=== PATIENT | female | born 1960 | race Caucasian/White ===

== ENCOUNTER 2016-11-28 22:52 | Emergency (ER) | payer MEDICARE, OTHER ==
[~2016-11-28] VITALS: Ht 170.2 cm; Wt 95.0 kg
[~2016-11-28 22:52] MED LIST: ALBU8I INH; APIX5TAB PO; ATOR20TA42 PO; FURO20TA PO; GLIP5 PO; GLUCTAB PO; METO50CR PO; POTA-243 PO; SYMB80AE INH; ULTR50TA PO; VITA400C28 PO; ZOFR4TAB3 SL
[2016-11-28 22:54] VITALS: BP 141/73; PULSE 66; RESP 16; TEMP 98.2; O2SAT 96
[2016-11-28] MEDS ORDERED: VITA100064 PO (23:32)
[2016-11-28] MEDS ORDERED: FURO1TAB62 PO (23:32)
[2016-11-28] MEDS ORDERED: SYMB80AE INH (23:32)
[2016-11-28] MEDS ORDERED: GLIP5TAB8 PO (23:32)
[2016-11-28] MEDS ORDERED: METF500T PO (23:32)
[2016-11-28] MEDS ORDERED: TRAM50TA PO (23:32)
[2016-11-28] MEDS ORDERED: APIX5TAB PO (23:32)
[2016-11-28] MEDS ORDERED: METO50TA11 PO (23:32)
[2016-11-28] MEDS ORDERED: LIPI20TA PO (23:32)
[2016-11-28] MEDS ORDERED: POTA10CA PO (23:32)
[2016-11-28] MEDS ORDERED: SODIUM CHLORIDE 0.9% FLUSH 5 ML FLUSH IVF PRN (23:45)
[2016-11-29 00:11] LABS: AUTOMATED NEUTROPHIL # 2.8 TH/MM3 (1.8-7.7); BASOPHIL % 0.4 % (0.0-2.0); EOSINOPHIL # 0.2 TH/MM3 (0-0.4); EOSINOPHIL % 3.2 % (0.0-4.0); HEMATOCRIT 36.7 % (35.0-46.0); HEMO FLAGS DIFF FINAL; LYMPH % 35.8 % (9.0-44.0); LYMPHOCYTE # 1.9 TH/MM3 (1.0-4.8); MEAN CELL VOLUME 81.3 FL (80.0-100.0); MEAN CORPUSCULAR HEMOGLOBIN 28.1 PG (27.0-34.0); MEAN CORPUSCULAR HGB CONC 34.6 % (32.0-36.0); MONO % 8.3 % (0.0-8.0); NEUT % 52.3 % (16.0-70.0); PLATELET COUNT 215 TH/MM3 (150-450); RED BLOOD COUNT 4.51 MIL/MM3 (4.00-5.30); RED CELL DISTRIBUTION WIDTH 13.6 % (11.6-17.2); WHITE BLOOD COUNT 5.4 TH/MM3 (4.0-11.0)
[2016-11-29 00:20] LABS: APTT (PATIENT) 28.3 SEC (24.3-30.1); INTERNATIONAL NORMALIZED RATIO 0.9 RATIO; PROTHROMBIN TIME - PATIENT 10.4 SEC (9.8-11.6)
[2016-11-29 00:21] LABS: BICARBONATE 28.2 MEQ/L (21.0-32.0); POTASSIUM 3.4 MEQ/L (3.5-5.1)
[2016-11-29 00:30] LABS: BACTERIA, URINE OCC /hpf; BLOOD, URINE MOD (NEG); CALCIUM OXALATE CRYSTALS,URINE FEW /hpf; COMMENT (UR) CULTURE INDICATED; CULTURE IF INDICATED CULTURE INDICATED; GLUCOSE,URINE NEG (NEG); KETONE, URINE NEG (NEG); MUCUS URINE FEW /lpf (OCC); NITRITE,URINE NEG (NEG); PH, URINE 5.5 (5.0-8.5); SQUAMOUS EPITHELIAL CELL URINE 4 /hpf (0-5)
[2016-11-29 00:31] LABS: URINE COLOR LIGHT-RED (YELLW/STRAW)
[2016-11-29] MEDS ORDERED: BACT800T5 PO (00:35)
--- NOTE | 2016-11-29 00:36 | PD ---
HPI Chief Complaint: Complaint Time Seen by Provider: 23:45 Travel History International Travel<30 days: No Contact w/Intl Traveler<30days: No Traveled to known affect area: No History of Present Illness HPI 56-year-old female arrives complaining of hematuria for about 2 days. Yesterday there was trace pink urine and today there was copious hematuria. She denies dysuria. She reports blood in her stool 1. 5 years prior she underwent colonoscopy with polyp evidently noncancerous. She takes Eloquis for atrial fibrillation. She reports a headache for the past couple days typical for her although she did require Excedrin twice and typically a single dose works. No chest pain or shortness of breath. No loss of consciousness. PFSH Past Medical History Hx Anticoagulant Therapy: Yes (ELIQUIS) Asthma: Yes Cardiovascular Problems: Yes (PACEMAKER/DEFIB/[place]) High Cholesterol: Yes Chemotherapy: No Diabetes: Yes (METFORMIN/GLIPIZIDE) Patient Takes Glucophage: Yes Diminished Hearing: No Gastrointestinal Disorders: No Heparin Induced Thrombocytopen: No Hypertension: Yes Implanted Vascular Access Dvce: Yes Respiratory: Yes (ASTHMA) Migraines: Yes Myocardial Infarction: Yes (IN 2007) Seizures: Yes Menopausal: Yes : 3 Para: 3 Tubal Ligation: Yes Past Surgical History AICD: Yes (02/06) Gynecologic Surgery: Yes (ABLATION) Hysterectomy: No Neurologic Surgery: No Other Surgery: Yes Social History Alcohol Use: No Tobacco Use: No Substance Use: No Allergies-Medications (Allergen,Severity, Reaction): Coded Allergies: Penicillin (Verified Allergy, Severe, HIVES, 11/28/16) Reported Meds & Prescriptions Reported Meds & Active Scripts Active Bactrim DS (Sulfamethoxazole-Trimethoprim) 800-160 Mg Tab 1 Tab PO BID 5 Days Reported Tramadol (Tramadol HCl) 50 Mg Tab 50 Mg PO Q8H PRN Potassium Chloride ER (Potassium Chloride) 10 Meq Cap 10 Meq PO BID Metoprolol Succinate ER 24 HR (Metoprolol Succinate) 50 Mg Tab 75 Mg PO DAILY Metformin (Metformin HCl) 500 Mg Tab 500 Mg PO BIDPC With meals Glipizide 5 Mg Tab 5 Mg PO BIDAC Take 30 minutes before a meal Lasix (Furosemide) 20 Mg Tab 20 Mg PO BID Vitamin D (Cholecalciferol) 1,000 Unit Tab 1,000 Units PO DAILY Symbicort Inh (Budesonide/Formoterol Fumarate) 80-4.5 Mcg/Act Aero 2 Puff INH Q12HR Lipitor (Atorvastatin Calcium) 20 Mg Tab 20 Mg PO HS Eliquis (Apixaban) 5 Mg Tab 5 Mg PO BID Review of Systems Except as stated in HPI: all other systems reviewed are Neg Physical Exam Narrative GENERAL: 56-year-old female pleasant well-nourished well-developed SKIN: Warm and dry. HEAD: Atraumatic. Normocephalic. EYES: Pupils equal and round. No scleral icterus. No injection or drainage. ENT: No nasal bleeding or discharge. Mucous membranes pink and moist. NECK: Trachea midline. No JVD. CARDIOVASCULAR: Regular rate and rhythm. No murmur appreciated. RESPIRATORY: No accessory muscle use. Clear to auscultation. Breath sounds equal bilaterally. GASTROINTESTINAL: Abdomen soft, non-tender, nondistended. Hepatic and splenic margins not palpable. MUSCULOSKELETAL: No obvious deformities. No clubbing. No cyanosis. No edema. NEUROLOGICAL: Awake and alert. No obvious cranial nerve deficits. Motor grossly within normal limits. Normal speech. PSYCHIATRIC: Appropriate mood and affect; insight and judgment normal. Data Data Last Documented VS Vital Signs Date Time Temp Pulse Resp B/P Pulse Ox O2 Delivery O2 Flow Rate FiO2 11/28/16 22:54 98.2 66 16 141/73 96 Orders Basic Metabolic Panel (Bmp) (11/28/16 23:45) Complete Blood Count With Diff (11/28/16 23:45) Prothrombin Time / Inr (Pt) (11/28/16 23:45) Act Partial Throm Time (Ptt) (11/28/16 23:45) Urinalysis - C+S If Indicated (11/28/16 23:45) Ecg Monitoring (11/28/16 23:45) Iv Access Insert/Monitor (11/28/16 23:45) Oximetry (11/28/16 23:45) Sodium Chloride 0.9% Flush (Ns Flush) (11/28/16 23:45) Urine Culture (11/28/16 23:30) Sulfamet-Trimeth Ds 800-160 Mg (Bactrim (11/29/16 01:45) Labs Laboratory Tests Test 11/28/16 23:30 White Blood Count 5.4 TH/MM3 Red Blood Count 4.51 MIL/MM3 Hemoglobin 12.7 GM/DL Hematocrit 36.7 % Mean Corpuscular Volume 81.3 FL Mean Corpuscular Hemoglobin 28.1 PG Mean Corpuscular Hemoglobin 34.6 % Concent Red Cell Distribution Width 13.6 % Platelet Count 215 TH/MM3 Mean Platelet Volume 9.1 FL Neutrophils (%) (Auto) 52.3 % Lymphocytes (%) (Auto) 35.8 % Monocytes (%) (Auto) 8.3 % Eosinophils (%) (Auto) 3.2 % Basophils (%) (Auto) 0.4 % Neutrophils # (Auto) 2.8 TH/MM3 Lymphocytes # (Auto) 1.9 TH/MM3 Monocytes # (Auto) 0.4 TH/MM3 Eosinophils # (Auto) 0.2 TH/MM3 Basophils # (Auto) 0.0 TH/MM3 CBC Comment DIFF FINAL Differential Comment Prothrombin Time 10.4 SEC Prothromb Time International 0.9 RATIO Ratio Activated Partial 28.3 SEC Thromboplast Time Urine Color LIGHT-RED Urine Turbidity HAZY Urine pH 5.5 Urine Specific [place] 1.028 Urine Protein 30 mg/dL Urine Glucose (UA) NEG mg/dL Urine Ketones NEG mg/dL Urine Occult Blood MOD Urine Nitrite NEG Urine Bilirubin NEG Urine Urobilinogen LESS THAN 2.0 MG/DL Urine Leukocyte Esterase LARGE Urine RBC /hpf Urine WBC 95 /hpf Urine Squamous Epithelial 4 /hpf Cells Urine Calcium Oxalate Crystals FEW /hpf Urine Bacteria OCC /hpf Urine Mucus FEW /lpf Urine Yeast (Budding) RARE Microscopic Urinalysis Comment CULTURE INDICATED Sodium Level 144 MEQ/L Potassium Level 3.4 MEQ/L Chloride Level 108 MEQ/L Carbon Dioxide Level 28.2 MEQ/L Anion Gap 8 MEQ/L Blood Urea Nitrogen 18 MG/DL Creatinine 0.74 MG/DL Estimat Glomerular Filtration 81 ML/MIN Rate Random Glucose 142 MG/DL Calcium Level 8.6 MG/DL [facility] Medical Decision Making Medical Screen Exam Complete: Yes Emergency Medical Condition: Yes Medical Record Reviewed: Yes Differential Diagnosis Hematuria, anemia, GI bleed Narrative Course CBC & BMP Diagram 11/28/16 23:30 Coags normal Urinalysis UTI present Patient has hemorrhagic cystitis. We will prescribe Bactrim. She has neither tachycardia or anemia. We'll discharge home with Bactrim. Patient agrees to follow-up with her sweatband flanger. Concern for uterine cancer discussed. Patient undergoes routine Pap smears and states she is due for one soon. Necessity of follow-up colonoscopy also discussed and pt verbalizes agreement to follow-up. Diagnosis Primary Impression: Cystitis Additional Impressions: Hematuria Hypokalemia Referrals: Uyen Leonard MD 2 days Primary Care Physician 2 days Additional Instructions: You have a choice when it comes to health care, and we are glad that you chose [email or web address]. Hopefully, we have met your expectations on today's visit. You are welcome to return to [email or web address] at any time, as we are committed to meeting the health care needs of our community. Med/Other Pt SpecificInfo: Prescription(s) given Scripts Sulfamethoxazole-Trimethoprim (Bactrim DS)800-160 Mg Tab1 Tab PO BID 5 Days Ref 0 Prov:Emil Torres MD 11/29/16 Disposition: 01 DISCHARGE HOME Condition: Stable Emil Torres MD Nov 29, 2016 00:36
[2016-11-29 01:45] VITALS: BP 130/76
[2016-11-29] MEDS ORDERED: SULFAMETHOXAZOLE-TRIMETHOPRIM DS 800-160 MG TAB PO ONE (01:45)
== END 2016-11-29 01:45 | disposition home or self-care (01) ==
LOC: NEPC 22:52
DX: N30.91 Cystitis, unspecified with hematuria (principal); B96.4 Proteus (mirabilis) (morganii) as the cause of diseases classified elsewhere; E87.6 Hypokalemia
CPT/HCPCS: 80048; 81001; 85025; 85610; 85730; 87077; 87086; 87186; 99284

== ENCOUNTER 2016-12-07 17:43 | Emergency (ER) | payer OTHER ==
[~2016-12-07] VITALS: Ht 170.2 cm; Wt 95.5 kg
[~2016-12-07 17:43] MED LIST changes: -ALBU8I INH; -ATOR20TA42 PO; +BACT800T5 PO; +FURO1TAB62 PO; -FURO20TA PO; -GLIP5 PO; +GLIP5TAB8 PO; -GLUCTAB PO; +LIPI20TA PO; +METF500T PO; -METO50CR PO; +METO50TA11 PO; -POTA-243 PO; +POTA10CA PO; +TRAM50TA PO; -ULTR50TA PO; +VITA100064 PO; -VITA400C28 PO; -ZOFR4TAB3 SL
[2016-12-07 17:46] VITALS: BP 146/69; PULSE 70; RESP 20; TEMP 98; O2SAT 95
[2016-12-07 20:12] LABS: BACTERIA, URINE FEW /hpf; BLOOD, URINE LARGE (NEG); COMMENT (UR) CULTURE INDICATED; CULTURE IF INDICATED CULTURE INDICATED; GLUCOSE,URINE NEG (NEG); KETONE, URINE NEG (NEG); NITRITE,URINE NEG (NEG); PH, URINE 5.5 (5.0-8.5)
[2016-12-07 20:13] LABS: URINE COLOR BROWN (YELLW/STRAW)
[2016-12-08] MEDS ORDERED: MACR100C2 PO (11:01)
[2016-12-08] MEDS ORDERED: ZOFR4TAB3 SL (11:01)
== END 2016-12-07 23:00 | disposition left against medical advice (07) ==
LOC: NED 17:43
DX: R68.89 Other general symptoms and signs (principal)
CPT/HCPCS: 81001; 87086; 99281

== ENCOUNTER 2016-12-08 08:39 | Emergency (ER) | payer OTHER ==
[~2016-12-08] VITALS: Ht 170.2 cm; Wt 100.0 kg
[2016-12-08 08:41] VITALS: BP 174/75; PULSE 61; RESP 19; TEMP 98; O2SAT 98
--- NOTE | 2016-12-08 09:19 | PD ---
HPI Chief Complaint: Complaint Time Seen by Provider: 09:17 Travel History International Travel<30 days: No Contact w/Intl Traveler<30days: No Traveled to known affect area: No History of Present Illness HPI 56-year-old female came to the emergency room with history of hematuria that started last night. Patient is also getting right flank pain that is radiating down to her right lower quadrant since last night. She has been nauseous and vomited few times she said. No history of fever or chills. Patient was in the emergency room on 28 November with hematuria and she had blood tests done as well as urinalysis and was diagnosed with UTI. She was discharged home on Bactrim for a 5 day course. Patient says that she finished her 5 days and was fine up until last night. She looks in moderate distress. Currently she says her pain is 6 out of 10. The pain comes and goes. Nothing makes the pain better or worse. No history of kidney stones in the past. I reviewed her vital signs and patient is slightly hypertensive. She has history of atrial fibrillation and is on Eliquis. [facility] Past Medical History Narrative Medical List of her past medical history is reviewed from the nursing note. Hx Anticoagulant Therapy: Yes (ELIQUIS) Asthma: Yes Cardiovascular Problems: Yes (PACEMAKER/DEFIB/[place]) High Cholesterol: Yes Chemotherapy: No Diabetes: Yes (METFORMIN/GLIPIZIDE) Diminished Hearing: No Gastrointestinal Disorders: No Heparin Induced Thrombocytopen: No Hypertension: Yes Implanted Vascular Access Dvce: Yes Respiratory: Yes (ASTHMA) Immunizations Current: Yes Migraines: Yes Myocardial Infarction: Yes (IN 2007) Seizures: Yes Menopausal: Yes : 3 Para: 3 Tubal Ligation: Yes Past Surgical History AICD: Yes (02/06) Cardiac Surgery: Yes (PACEMAKER/AICD) Gynecologic Surgery: Yes (ABLATION) Hysterectomy: No Neurologic Surgery: No Pacemaker: Yes Other Surgery: Yes Social History Alcohol Use: No Tobacco Use: No Substance Use: No Allergies-Medications (Allergen,Severity, Reaction): Coded Allergies: Penicillin (Verified Allergy, Severe, HIVES, 12/08/16) Comments List of her allergies reviewed from the nursing note. Reported Meds & Prescriptions Reported Meds & Active Scripts Active Zofran Odt (Ondansetron Odt) 4 Mg Tab 4 Mg SL Q6HR PRN Macrobid (Nitrofurantoin Monoh/Nitrofur Macro) 100 Mg Cap 100 Mg PO BID 10 Days Reported Tramadol (Tramadol HCl) 50 Mg Tab 50 Mg PO Q8H PRN Potassium Chloride ER (Potassium Chloride) 10 Meq Cap 10 Meq PO BID Metoprolol Succinate ER 24 HR (Metoprolol Succinate) 50 Mg Tab 75 Mg PO DAILY Metformin (Metformin HCl) 500 Mg Tab 500 Mg PO BIDPC With meals Glipizide 5 Mg Tab 5 Mg PO BIDAC Take 30 minutes before a meal Lasix (Furosemide) 20 Mg Tab 20 Mg PO DAILY Vitamin D (Cholecalciferol) 1,000 Unit Tab 1,000 Units PO DAILY Symbicort Inh (Budesonide/Formoterol Fumarate) 80-4.5 Mcg/Act Aero 2 Puff INH Q12HR Lipitor (Atorvastatin Calcium) 20 Mg Tab 20 Mg PO HS Eliquis (Apixaban) 5 Mg Tab 5 Mg PO BID Narrative Medication List of her home medications reviewed from the nursing note. Review of Systems Except as stated in HPI: all other systems reviewed are Neg Physical Exam Narrative GENERAL: Awake, alert, obese, moderate distress SKIN: Warm and dry. HEAD: Atraumatic. Normocephalic. EYES: Pupils equal and round. No scleral icterus. No injection or drainage. ENT: No nasal bleeding or discharge. Dry mucous membrane. NECK: Trachea midline. No JVD. CARDIOVASCULAR: Regular rate and rhythm. No murmur appreciated. RESPIRATORY: No accessory muscle use. Clear to auscultation. Breath sounds equal bilaterally. GASTROINTESTINAL: Abdomen soft, non-tender, nondistended. Hepatic and splenic margins not palpable. No CVA tenderness. MUSCULOSKELETAL: No obvious deformities. No clubbing. No cyanosis. No edema. NEUROLOGICAL: Awake and alert. No obvious cranial nerve deficits. Motor grossly within normal limits. Normal speech. PSYCHIATRIC: Appropriate mood and affect; insight and judgment normal. Data Data Last Documented VS Vital Signs Date Time Temp Pulse Resp B/P Pulse Ox O2 Delivery O2 Flow Rate FiO2 12/08/16 11:22 17 12/08/16 10:55 61 146/67 98 Room Air 12/08/16 08:41 98.0 Orders Basic Metabolic Panel (Bmp) (12/08/16 09:23) Complete Blood Count With Diff (12/08/16 09:23) Urinalysis - C+S If Indicated (12/08/16 09:23) Ct Abd/Pel W/O Iv Contrast (12/08/16 09:23) Iv Access Insert/Monitor (12/08/16 09:23) Ecg Monitoring (12/08/16 09:23) Oximetry (12/08/16 09:23) Ondansetron Inj (Zofran Inj) (12/08/16 09:30) Sodium Chlor 0.9% 1000 Ml Inj (Ns 1000 M (12/08/16 09:23) Sodium Chloride 0.9% Flush (Ns Flush) (12/08/16 09:30) Ketorolac Inj (Toradol Inj) (12/08/16 09:30) Urine Culture (12/08/16 09:48) Nitrofurantoin Monohyd Macrocr (Macrobid (12/08/16 11:00) Labs Laboratory Tests Test 12/08/16 12/08/16 09:48 10:02 Urine Color YELLOW Urine Turbidity CLEAR Urine pH 5.5 Urine Specific [place] 1.021 Urine Protein 100 mg/dL Urine Glucose (UA) NEG mg/dL Urine Ketones NEG mg/dL Urine Occult Blood LARGE Urine Nitrite NEG Urine Bilirubin NEG Urine Urobilinogen LESS THAN 2.0 MG/DL Urine Leukocyte Esterase NEG Urine RBC /hpf Urine WBC 44 /hpf Urine Bacteria OCC /hpf Urine Mucus FEW /lpf Microscopic Urinalysis Comment CULTURE INDICATED Sodium Level 137 MEQ/L Potassium Level 3.8 MEQ/L Chloride Level 103 MEQ/L Carbon Dioxide Level 25.6 MEQ/L Anion Gap 8 MEQ/L Blood Urea Nitrogen 13 MG/DL Creatinine 0.71 MG/DL Estimat Glomerular Filtration 85 ML/MIN Rate Random Glucose 157 MG/DL Calcium Level 8.9 MG/DL White Blood Count 10.1 TH/MM3 Red Blood Count 4.79 MIL/MM3 Hemoglobin 13.7 GM/DL Hematocrit 38.5 % Mean Corpuscular Volume 80.4 FL Mean Corpuscular Hemoglobin 28.5 PG Mean Corpuscular Hemoglobin 35.4 % Concent Red Cell Distribution Width 13.4 % Platelet Count 231 TH/MM3 Mean Platelet Volume 9.3 FL Neutrophils (%) (Auto) 79.0 % Lymphocytes (%) (Auto) 14.5 % Monocytes (%) (Auto) 5.0 % Eosinophils (%) (Auto) 1.0 % Basophils (%) (Auto) 0.5 % Neutrophils # (Auto) 8.0 TH/MM3 Lymphocytes # (Auto) 1.5 TH/MM3 Monocytes # (Auto) 0.5 TH/MM3 Eosinophils # (Auto) 0.1 TH/MM3 Basophils # (Auto) 0.0 TH/MM3 CBC Comment AUTO DIFF Differential Comment AUTO DIFF CONFIRMED Platelet Estimate NORMAL Platelet Morphology Comment NORMAL Red Cell Morphology Comment NORMAL MDM Medical Decision Making Medical Screen Exam Complete: Yes Emergency Medical Condition: Yes Medical Record Reviewed: Yes Differential Diagnosis Ureteral colic, UTI, pyelonephritis Narrative Course 9:47 AM I reviewed her chart from her previous visit. I reviewed her lab reports. Patient was positive for UTI and the urine culture grew Proteus mirabilis that was sensitive to Bactrim. It is possible that the course of the antibiotic she was given might have been too short to treat the infection. This could be a recurrence of the same infection. Given the fact that she is on anticoagulant could be giving her the gross hematuria. However I have ordered a CAT scan in order to rule out renal calculi. Patient does have the flank pain along with hematuria which would support that diagnosis. Awaiting for the blood test result and the CAT scan to be done and resulted. Patient is being medicated for pain. She looks dehydrated and I have ordered IV fluid. 10:58 AM blood test results are back and grossly within normal limit. Her UA was grossly positive for UTI. Based on the previous culture and sensitivity I have given her Macrobid this time and she should go home on a 10 day course. CAT scan does not show pyelonephritis or ureteral calculus. Incidentally she does have a renal calculi. I discussed with her all the test results and told her that I will discharge her home once she is finished receiving the IV fluid. Patient did not have any more vomiting episode in the ER. I will give her prescription for Zofran as well. She was comfortable with that plan. Procedures Procedure Narrative Emergency department US guided peripheral IV was performed with patient consent. Linear probe was used in the transverse views of the peripheral vein to assist with vascular access. EKG Prior to Arrival: No Diagnosis Primary Impression: UTI (urinary tract infection) Qualified Code: N39.0 - Urinary tract infection with hematuria, site unspecified Additional Impressions: Vomiting Qualified Code: R11.2 - Non-intractable vomiting with nausea, unspecified vomiting type Dehydration Referrals: Primary Care Physician 2 days Departure Forms: Tests/Procedures, Work Release Enter return to work date: Dec 09, 2016 Additional Instructions: Please return to the ER if the condition worsens or any other new concerns like vomiting and unable to hold the antibiotic down. The antibiotic and medication as per the prescription direction. Follow-up with your primary care in couple days. Hold L liquids for the next 2 days until the blood in your urine results. Med/Other Pt SpecificInfo: Prescription(s) given Scripts Ondansetron Odt (Zofran Odt)4 Mg Tab4 Mg SL Q6HR PRN (Nausea/Vomiting) #30 TAB Ref 0 Prov:Jeniffer Loco MD 12/08/16 Nitrofurantoin Monohydrate Macrocrystals (Macrobid)100 Mg [id number] Mg PO BID 10 Days Ref 0 Prov:Jeniffer Loco MD 12/08/16 Disposition: 01 DISCHARGE HOME Condition: Stable Jeniffer Loco MD Dec 08, 2016 09:19
[2016-12-08] MEDS ORDERED: SODIUM CHLOR 0.9% 1000 ML INJ 1,000 ML IV SCH (09:23)
[2016-12-08] MEDS ORDERED: ONDANSETRON HCL 4 MG/2 ML VIAL IVP ONE (09:30)
[2016-12-08] MEDS ORDERED: SODIUM CHLORIDE 0.9% FLUSH 5 ML FLUSH IVF PRN (09:30)
[2016-12-08] MEDS ORDERED: KETOROLAC TROMETHAMINE 30 MG/ML (IVP) VIAL IVP ONE (09:30)
[2016-12-08 10:19] LABS: BASOPHIL % 0.5 % (0.0-2.0); EOSINOPHIL # 0.1 TH/MM3 (0-0.4); HEMATOCRIT 38.5 % (35.0-46.0); LYMPH % 14.5 % (9.0-44.0); LYMPHOCYTE # 1.5 TH/MM3 (1.0-4.8); MEAN CELL VOLUME 80.4 FL (80.0-100.0); MEAN CORPUSCULAR HEMOGLOBIN 28.5 PG (27.0-34.0); MEAN CORPUSCULAR HGB CONC 35.4 % (32.0-36.0); PLATELET COUNT 231 TH/MM3 (150-450); RED BLOOD COUNT 4.79 MIL/MM3 (4.00-5.30); RED CELL DISTRIBUTION WIDTH 13.4 % (11.6-17.2); WHITE BLOOD COUNT 10.1 TH/MM3 (4.0-11.0)
[2016-12-08 10:24] LABS: HEMO FLAGS AUTO DIFF
[2016-12-08 10:25] VITALS: O2SAT 97
[2016-12-08 10:31] LABS: BICARBONATE 25.6 MEQ/L (21.0-32.0); POTASSIUM 3.8 MEQ/L (3.5-5.1)
--- NOTE | 2016-12-08 10:31 | RADRPT ---
EXAM DATE/TIME: 12/08/2016 10:09 [place] COMPARISON: No previous studies available for comparison. INDICATIONS : Right lower quadrant pain, hematuria ORAL CONTRAST: No oral contrast ingested. RADIATION DOSE: 8.55 CTDIvol (mGy) MEDICAL HISTORY : Cardiovascular disease. Hypertension. SURGICAL HISTORY : Tubal ligation. ENCOUNTER: Initial ACUITY: 2 weeks PAIN SCALE: 6/10 LOCATION: Right lower quadrant TECHNIQUE: Volumetric scanning of the abdomen and pelvis was performed. Using automated exposure control and ad justment of the mA and/or kV according to patient size, radiation dose was kept as low as reasonably achievable to obtain optimal diagnostic quality images. FINDINGS: LOWER LUNGS: The visualized lower lungs are clear. LIVER: Homogeneous density without lesion. There is no dilation of the biliary tree. No calcified gallston es. SPLEEN: Normal size without lesion. PANCREAS: Within normal limits. KIDNEYS: Normal in size and shape. There is no hydronephrosis. There is an apparent parapelvic cyst in the up per pole the right kidney. There is a 1.2 x 0.9 x 1.1 cm calculus in the lower pole the left kidney. The ureters are unremarkable. ADRENAL GLANDS: Within normal limits. VASCULAR: There is no aortic aneurysm. BOWEL/MESENTERY: The stomach, small bowel, and colon demonstrate no acute abnormality. There is no free intraperitone al air or fluid. ABDOMINAL WALL: Within normal limits. RETROPERITONEUM: There is no lymphadenopathy. BLADDER: No wall thickening or mass. REPRODUCTIVE: Within normal limits. INGUINAL: There is no lymphadenopathy or hernia. MUSCULOSKELETAL: Within normal limits for patient age. CONCLUSION: 1. Left renal calculus. 2. Apparent right parapelvic cysts. 3. Unremarkable ureters with no evidence of hydronephrosis. Sean Yadav MD on December 08, 2016 at 10:26 Board Certified Radiologist. This report was verified electronically.
[2016-12-08 10:47] LABS: BACTERIA, URINE OCC /hpf; BLOOD, URINE LARGE (NEG); COMMENT (UR) CULTURE INDICATED; CULTURE IF INDICATED CULTURE INDICATED; GLUCOSE,URINE NEG (NEG); KETONE, URINE NEG (NEG); MUCUS URINE FEW /lpf (OCC); NITRITE,URINE NEG (NEG); PH, URINE 5.5 (5.0-8.5); URINE COLOR YELLOW (YELLW/STRAW)
[2016-12-08 10:55] VITALS: BP 146/67; PULSE 61; RESP 17; O2SAT 98
[2016-12-08 10:56] LABS: PLATELET ESTIMATE SMEAR NORMAL (NORMAL); PLATELET MORPHOLOGY NORMAL (NORMAL); SCAN/DIFF AUTO DIFF CONFIRMED
[2016-12-08] MEDS ORDERED: NITROFURANTOIN MONOHYD MACROCR 100 MG CAP PO ONE (11:00)
[2016-12-08] MEDS ORDERED: ZOFR4TAB3 SL (11:01)
[2016-12-08] MEDS ORDERED: MACR100C2 PO (11:01)
[2016-12-08 11:22] VITALS: RESP 17
== END 2016-12-08 12:03 | disposition home or self-care (01) ==
LOC: NEPD 08:39
DX: N39.0 Urinary tract infection, site not specified (principal); R11.2 Nausea with vomiting, unspecified; E86.0 Dehydration; I48.91 Unspecified atrial fibrillation; J45.909 Unspecified asthma, uncomplicated; E11.9 Type 2 diabetes mellitus without complications; I10 Essential (primary) hypertension; E78.00 Pure hypercholesterolemia, unspecified; I25.2 Old myocardial infarction; B96.4 Proteus (mirabilis) (morganii) as the cause of diseases classified elsewhere; Z95.0 Presence of cardiac pacemaker; Z79.01 Long term (current) use of anticoagulants
CPT/HCPCS: 74176; 80048; 81001; 85025; 87077; 87086; 87186; 96361; 96374; 96375; 99284; J1885; J2405; J7030

== ENCOUNTER 2016-12-27 23:24 | Emergency (ER) | payer OTHER ==
[~2016-12-27] VITALS: Ht 170.2 cm; Wt 100.0 kg
[~2016-12-27 23:24] MED LIST changes: -BACT800T5 PO; +MACR100C2 PO; +ZOFR4TAB3 SL
[2016-12-27 23:26] VITALS: BP 160/78; PULSE 87; RESP 20; TEMP 98.4; O2SAT 96
[2016-12-28 00:08] LABS: AUTOMATED NEUTROPHIL # 5.4 TH/MM3 (1.8-7.7); BASOPHIL % 0.4 % (0.0-2.0); EOSINOPHIL # 0.1 TH/MM3 (0-0.4); EOSINOPHIL % 1.6 % (0.0-4.0); HEMATOCRIT 39.4 % (35.0-46.0); HEMO FLAGS DIFF FINAL; LYMPH % 19.5 % (9.0-44.0); LYMPHOCYTE # 1.5 TH/MM3 (1.0-4.8); MEAN CELL VOLUME 80.6 FL (80.0-100.0); MEAN CORPUSCULAR HEMOGLOBIN 27.7 PG (27.0-34.0); MEAN CORPUSCULAR HGB CONC 34.4 % (32.0-36.0); MONO % 7.1 % (0.0-8.0); NEUT % 71.4 % (16.0-70.0); PLATELET COUNT 237 TH/MM3 (150-450); RED BLOOD COUNT 4.88 MIL/MM3 (4.00-5.30); RED CELL DISTRIBUTION WIDTH 13.6 % (11.6-17.2); WHITE BLOOD COUNT 7.6 TH/MM3 (4.0-11.0)
[2016-12-28 00:17] LABS: BLOOD, URINE LARGE (NEG); GLUCOSE,URINE TRACE mg/dL (NEG); KETONE, URINE NEG (NEG); NITRITE,URINE NEG (NEG)
[2016-12-28 00:20] LABS: BICARBONATE 28.1 MEQ/L (21.0-32.0); POTASSIUM 3.7 MEQ/L (3.5-5.1)
[2016-12-28 00:23] LABS: URINE COLOR RED (YELLW/STRAW)
[2016-12-28 00:25] LABS: COMMENT (UR) CULTURE INDICATED; CULTURE IF INDICATED CULTURE INDICATED
[2016-12-28 00:27] LABS: APTT (PATIENT) 26.1 SEC (24.3-30.1); INTERNATIONAL NORMALIZED RATIO 0.9 RATIO; PROTHROMBIN TIME - PATIENT 9.5 SEC (9.8-11.6)
[2016-12-28] MEDS ORDERED: SODIUM CHLOR 0.9% 1000 ML INJ 1,000 ML IV ONE (00:30)
[2016-12-28] MEDS ORDERED: MORPHINE SULFATE 4 MG/ML INJ IV PUSH ONE ×2 (00:30→02:15)
[2016-12-28] MEDS ORDERED: ONDANSETRON HCL 4 MG/2 ML VIAL IV ONE (00:30)
--- NOTE | 2016-12-28 01:05 | PD ---
HPI Chief Complaint: Flank/Kidney Pain Time Seen by Provider: 23:35 Travel History International Travel<30 days: No Contact w/Intl Traveler<30days: No Traveled to known affect area: No History of Present Illness HPI The patient is a 56 year old female who presents to the [facility] emergency department with a history of right-sided flank pain that she reports is intermittently been present throughout the day today and became much worse that he p.m. The patient reports that she's had problems with back pain and hematuria over the last month. The patient reports that she went to the emergency department related to the hematuria was diagnosed with urinary tract infection and treated with antibiotic. The patient continued to have pain and hematuria week later was again seen in the emergency department on December 08. The patient reports that at that time a CT scan of the abdomen and pelvis was done which showed a renal calculi, no hydronephrosis or ureterolithiasis. The patient was again diagnosed with a urinary tract infection and treated with a ten-day course of Macrobid and Zofran for nausea. She reports that she followed up with her primary care physician this past . The patient reports that she was given a shot of pain medication and Naprosyn, however the Naprosyn has not been helping at all. The patient's medical history is, located by having atrial fibrillation, cardiac arrhythmias with pacemaker/AICD placement and is on Eliquis for anticoagulation. The patient reports that she has been on tramadol for years for pain, however she ran out of this . She reports that the physician that she followed up with on is a new primary care physician and they did not write a new RX for her pain medicine. She reports that she is chronically on tramadol related to back and leg pain. The patient reports that she has flank pain on the right side that radiates into the right lower quadrant of the abdomen. She reports that she's had nausea and vomiting 3 today. The patient denies The patient denies any history of fevers, cough, congestion, neck pain, chest pain, shortness of breath ,diarrhea, or neurologic symptoms. FORMERLY [facility], [facility]–1983 Past Medical History Narrative Medical The patient's past medical history is significant for atrial fibrillation, anticoagulated on Eliquis, asthma, hyperlipidemia, diabetes mellitus, , hypertension, history of migraine headaches, seizure disorder, history of myocardial infarction in 2007. Hx Anticoagulant Therapy: Yes (ELIQUIS) Asthma: Yes Cardiovascular Problems: Yes (PACEMAKER/DEFIB/AK) High Cholesterol: Yes Chemotherapy: No Diabetes: Yes (METFORMIN/GLIPIZIDE) Patient Takes Glucophage: Yes Diminished Hearing: No Gastrointestinal Disorders: No Heparin Induced Thrombocytopen: No Hypertension: Yes Implanted Vascular Access Dvce: Yes Respiratory: Yes (ASTHMA) Immunizations Current: Yes Migraines: Yes Myocardial Infarction: Yes (IN 2007) Seizures: Yes Menopausal: Yes : 3 Para: 3 Tubal Ligation: Yes Past Surgical History Narrative Surgical The patient's past surgical history is significant for pacemaker/AICD placement , history of cardiac ablation, history of bilateral tubal ligation, history of a urethral dilatation at 11 years of age AICD: Yes (02/06) Cardiac Surgery: Yes (PACEMAKER/AICD) Gynecologic Surgery: Yes (ABLATION) Hysterectomy: No Neurologic Surgery: No Pacemaker: Yes (DUAL CHAMBER) Other Surgery: Yes Social History Alcohol Use: No Tobacco Use: No Substance Use: No Allergies-Medications (Allergen,Severity, Reaction): Coded Allergies: Penicillin (Verified Allergy, Severe, HIVES, 12/27/16) Reported Meds & Prescriptions Reported Meds & Active Scripts Active Zofran Odt (Ondansetron Odt) 4 Mg Tab 4 Mg SL Q6HR PRN Lortab (Hydrocodone-Acetaminophen) 7.5-325 Mg Tab 1 Tab PO Q6H PRN Ceftin (Cefuroxime Axetil) 500 Mg Tab 500 Mg PO BID 10 Days Zofran Odt (Ondansetron Odt) 4 Mg Tab 4 Mg SL Q6HR PRN Macrobid (Nitrofurantoin Monoh/Nitrofur Macro) 100 Mg Cap 100 Mg PO BID 10 Days Reported Tramadol (Tramadol HCl) 50 Mg Tab 50 Mg PO Q8H PRN Potassium Chloride ER (Potassium Chloride) 10 Meq Cap 10 Meq PO BID Metoprolol Succinate ER 24 HR (Metoprolol Succinate) 50 Mg Tab 75 Mg PO DAILY Metformin (Metformin HCl) 500 Mg Tab 500 Mg PO BIDPC With meals Glipizide 5 Mg Tab 5 Mg PO BIDAC Take 30 minutes before a meal Lasix (Furosemide) 20 Mg Tab 20 Mg PO DAILY Vitamin D (Cholecalciferol) 1,000 Unit Tab 1,000 Units PO DAILY Symbicort Inh (Budesonide/Formoterol Fumarate) 80-4.5 Mcg/Act Aero 2 Puff INH Q12HR Lipitor (Atorvastatin Calcium) 20 Mg Tab 20 Mg PO HS Eliquis (Apixaban) 5 Mg Tab 5 Mg PO BID Review of Systems Except as stated in HPI: all other systems reviewed are Neg General / Constitutional: No: Fever Eyes: No: Visual changes HENT: No: Headaches Cardiovascular: No: Chest Pain or Discomfort Respiratory: No: Shortness of Breath Gastrointestinal: Positive: Nausea, Vomiting, Abdominal Pain Genitourinary: Positive: Dysuria, Hematuria, Flank Pain Musculoskeletal: No: Pain Skin: No Rash Neurologic: No: Weakness Psychiatric: No: Depression Endocrine: No: Polydipsia Hematologic/Lymphatic: No: Easy Bruising Physical Exam Narrative General: The patient is a well-developed well-nourished female in no acute distress. Head and Neck exam: Head is normocephalic atraumatic. Eyes: EOMI, pupils are equal round and reactive to light. Nose: Midline septum with pink mucous membranes Mouth: Dentition unremarkable. Moist mucus membranes. Posterior oropharynx is not erythematous. No tonsillar hypertrophy. Uvula midline. Airway patent. Neck: No palpable lymphadenopathy. No nuchal rigidity. No thyromegaly. Cardiovascular: Regular rate and rhythm without murmurs, gallops, or rubs. Lungs: Clear to auscultation bilaterally. No wheezes, rhonchi, or rales. Abdomen: Soft, without tenderness to palpation in all 4 quadrants of the abdomen. No guarding, rebound, or rigidity. Normal bowel sounds are audible. No tenderness on palpation of McBurney's point. Negative Hannon's sign. Extremities: No clubbing, cyanosis, or edema. 2+ pulses in all 4 extremities. No calf tenderness on palpation. Back: No spinous process tenderness to palpation. Right-sided CVA tenderness on palpation. Neurologic Exam: Grossly nonfocal. Skin Exam: No rash noted. Intact skin that is warm and dry. Data Data Last Documented VS Vital Signs Date Time Temp Pulse Resp B/P Pulse Ox O2 Delivery O2 Flow Rate FiO2 12/28/16 03:30 80 16 128/67 100 12/27/16 23:26 98.4 Room Air Orders Complete Blood Count With Diff (12/27/16 23:48) Basic Metabolic Panel (Bmp) (12/27/16 23:48) Prothrombin Time / Inr (Pt) (12/27/16 23:48) Act Partial Throm Time (Ptt) (12/27/16 23:48) Urinalysis - C+S If Indicated (12/27/16 23:48) Iv Access Insert/Monitor (12/27/16 23:48) Ecg Monitoring (12/27/16 23:48) Oximetry (12/27/16 23:48) Urine Culture (12/27/16 23:45) Urinary Catheter Insert/Apply (12/28/16 00:28) Sodium Chlor 0.9% 1000 Ml Inj (Ns 1000 M (12/28/16 00:30) Ondansetron Inj (Zofran Inj) (12/28/16 00:30) Morphine Inj (Morphine Inj) (12/28/16 00:30) Ct Abd/Pel W/O Iv Contrast (12/28/16 00:30) Sodium Chlorid 0.9% 500 Ml Inj (Ns 500 M (12/28/16 02:15) Morphine Inj (Morphine Inj) (12/28/16 02:15) Ceftriaxone Inj (Rocephin Inj) (12/28/16 02:15) Labs Laboratory Tests Test 12/27/16 23:45 Prothrombin Time 9.5 SEC Prothromb Time International 0.9 RATIO Ratio Activated Partial 26.1 SEC Thromboplast Time Sodium Level 143 MEQ/L Potassium Level 3.7 MEQ/L Chloride Level 107 MEQ/L Carbon Dioxide Level 28.1 MEQ/L Anion Gap 8 MEQ/L Blood Urea Nitrogen 22 MG/DL Creatinine 0.80 MG/DL Estimat Glomerular Filtration 74 ML/MIN Rate Random Glucose 154 MG/DL Calcium Level 9.1 MG/DL White Blood Count 7.6 TH/MM3 Red Blood Count 4.88 MIL/MM3 Hemoglobin 13.5 GM/DL Hematocrit 39.4 % Mean Corpuscular Volume 80.6 FL Mean Corpuscular Hemoglobin 27.7 PG Mean Corpuscular Hemoglobin 34.4 % Concent Red Cell Distribution Width 13.6 % Platelet Count 237 TH/MM3 Mean Platelet Volume 9.2 FL Neutrophils (%) (Auto) 71.4 % Lymphocytes (%) (Auto) 19.5 % Monocytes (%) (Auto) 7.1 % Eosinophils (%) (Auto) 1.6 % Basophils (%) (Auto) 0.4 % Neutrophils # (Auto) 5.4 TH/MM3 Lymphocytes # (Auto) 1.5 TH/MM3 Monocytes # (Auto) 0.5 TH/MM3 Eosinophils # (Auto) 0.1 TH/MM3 Basophils # (Auto) 0.0 TH/MM3 CBC Comment DIFF FINAL Differential Comment Urine Color RED Urine Turbidity HAZY Urine pH 6.0 Urine Specific Spur 1.020 Urine Protein 100 mg/dL Urine Glucose (UA) TRACE mg/dL Urine Ketones NEG mg/dL Urine Occult Blood LARGE Urine Nitrite NEG Urine Bilirubin NEG Urine Urobilinogen LESS THAN 2.0 MG/DL Urine Leukocyte Esterase LARGE Urine RBC /hpf Urine WBC 679 /hpf Urine WBC Clumps RARE Microscopic Urinalysis Comment CULTURE INDICATED MDM Medical Decision Making Medical Screen Exam Complete: Yes Emergency Medical Condition: Yes Medical Record Reviewed: Yes Interpretation(s) Laboratory Tests Test 12/27/16 23:45 Prothrombin Time 9.5 SEC Prothromb Time International 0.9 RATIO Ratio Activated Partial 26.1 SEC Thromboplast Time Sodium Level 143 MEQ/L Potassium Level 3.7 MEQ/L Chloride Level 107 MEQ/L Carbon Dioxide Level 28.1 MEQ/L Anion Gap 8 MEQ/L Blood Urea Nitrogen 22 MG/DL Creatinine 0.80 MG/DL Estimat Glomerular Filtration 74 ML/MIN Rate Random Glucose 154 MG/DL Calcium Level 9.1 MG/DL White Blood Count 7.6 TH/MM3 Red Blood Count 4.88 MIL/MM3 Hemoglobin 13.5 GM/DL Hematocrit 39.4 % Mean Corpuscular Volume 80.6 FL Mean Corpuscular Hemoglobin 27.7 PG Mean Corpuscular Hemoglobin 34.4 % Concent Red Cell Distribution Width 13.6 % Platelet Count 237 TH/MM3 Mean Platelet Volume 9.2 FL Neutrophils (%) (Auto) 71.4 % Lymphocytes (%) (Auto) 19.5 % Monocytes (%) (Auto) 7.1 % Eosinophils (%) (Auto) 1.6 % Basophils (%) (Auto) 0.4 % Neutrophils # (Auto) 5.4 TH/MM3 Lymphocytes # (Auto) 1.5 TH/MM3 Monocytes # (Auto) 0.5 TH/MM3 Eosinophils # (Auto) 0.1 TH/MM3 Basophils # (Auto) 0.0 TH/MM3 CBC Comment DIFF FINAL Differential Comment Urine Color RED Urine Turbidity HAZY Urine pH 6.0 Urine Specific Spur 1.020 Urine Protein 100 mg/dL Urine Glucose (UA) TRACE mg/dL Urine Ketones NEG mg/dL Urine Occult Blood LARGE Urine Nitrite NEG Urine Bilirubin NEG Urine Urobilinogen LESS THAN 2.0 MG/DL Urine Leukocyte Esterase LARGE Urine RBC /hpf Urine WBC 679 /hpf Urine WBC Clumps RARE Microscopic Urinalysis Comment CULTURE INDICATED Last Impressions Abdomen/Pelvis CT 12/28/16 0030 Signed Impressions: Service Date/Time: Wednesday, December 28, 2016 01:22 - CONCLUSION: 1. Right-sided mild hydronephrosis and obstructive uropathy secondary to a presumed faintly calcified 3 mm calculus near the right UVJ with additional 3 mm calculus dependently within the bladder. Bladder decompressed by Jane. 2. Nonobstructing calculus lower pole left kidney. Tigre Rios MD Differential Diagnosis Ureteral lithiasis, versus pyelonephritis, versus exacerbation of chronic pain Narrative Course During the course of the patients emergency department visit, the patients history, examination, and differential diagnosis were reviewed with the patient. The patient had IV access obtained and blood work sent for analysis. The patient was placed on a corporate trust officer with oximetry and blood pressure monitoring. The patient's electronic medical record was reviewed. The patient' s last CT scan was done December 08. Will be repeated at this time due to the pain being much worse than previously. The patient was provided normal saline 1 L IV fluid bolus. The patient was given morphine 4 mg IV for pain, Zofran 4 mg IV for nausea. The patient reports having urinary frequency and urgency with minimal urine output. The patient has a history of urinary retention and ureteral stricture and childhood , therefore a Jane catheter will be placed to assess for urinary retention. No urinary retention was noted. The patient was given an additional normal saline 500 mL bolus. Urinalysis showed evidence of hematuria and pyuria the patient was given Rocephin 1 g IV. The patient's urine culture that was done previously grew out Proteus which was pansensitive. The patient will be discharged home with a prescription for Ceftin. The patients laboratory studies were reviewed and remarkable for a CBC that is unremarkable, BNP is remarkable for BUN of 22, glucose 154, PT 9.5, INR 0.9, PTT 26.1, urinalysis shows red urine, 100 protein, large occult blood, large leukocyte esterase, innumerable rbc's, 679 wbc's, rare clumps, culture indicated. Radiology studies were reviewed and remarkable for a CT scan of the abdomen and pelvis shows a right sided mild hydronephrosis and obstructive uropathy secondary to a presumed faintly calcified 3 mm calculus near the right UVJ and an additional 3 mm calculus dependent within the bladder. The bladder is decompressed by a Jane, nonobstructing calculus lower pole left kidney. The Jane catheter was removed, as the patient's symptoms of urgency appeared to be related to her bladder stone and ureteral calculi. The patient had no evidence of urinary retention. Kidney function appears to be good on evaluation. The patient was given the name of the urologist to follow-up with. The patient was instructed regarding her diagnosis of a kidney stone in the urethra. The patient is resting comfortably and feels better, is alert and in no distress. The patients results and examination findings were discussed with the patient. The repeat examination is unremarkable and benign. The history, exam, diagnostic testing, and current condition do not suggest any significant pathology to warrant further testing, continued ED treatment, admission, or surgical evaluation at this point. The vital signs have been stable. The patient does not have uncontrollable pain, intractable vomiting, or other significant symptoms. The patient's condition is stable and appropriate for discharge. The patient will pursue further outpatient evaluation with a primary care physician or other designated or consulting physician as indicated in the discharge instructions. The patient expressed understanding and was agreeable with this plan. Diagnosis Primary Impression: Ureterolithiasis Additional Impression: Urinary tract infection Qualified Code: N39.0 - Urinary tract infection with hematuria, site unspecified Referrals: Samuel Conway DO 3 days Patient Instructions: General Instructions, Kidney Stones (ED) Med/Other Pt SpecificInfo: Prescription(s) given Scripts Ondansetron Odt (Zofran Odt)4 Mg Tab4 Mg SL Q6HR PRN (Nausea/Vomiting) #7 TAB Ref 0 Prov:Lauren Salazar MD 12/28/16 Hydrocodone-Acetaminophen (Lortab)7.5-325 Mg Tab1 Tab PO Q6H PRN (PAIN) #12 TAB Ref 0 Prov:Lauren Salazar MD 12/28/16 Cefuroxime (Ceftin)500 Mg [id number] Mg PO BID 10 Days Ref 0 Prov:Lauren Salazar MD 12/28/16 Disposition: 01 DISCHARGE HOME Condition: Stable Lauren Salazar MD Dec 28, 2016 01:05
--- NOTE | 2016-12-28 02:00 | RADRPT ---
EXAM DATE/TIME: 12/28/2016 01:22 [place] COMPARISON: No previous studies available for comparison. INDICATIONS : Right flank pain with hematuria. ORAL CONTRAST: No oral contrast ingested. RADIATION DOSE: 12.17 CTDIvol (mGy) MEDICAL HISTORY : Hypertension. Myocardial infarction. Diabetes mellitus type 2. SURGICAL HISTORY : Tubal ligation. Pacemaker. ENCOUNTER: Initial ACUITY: 2 weeks PAIN SCALE: 4/10 LOCATION: Right flank TECHNIQUE: Volumetric scanning of the abdomen and pelvis was performed. Using automated exposure control and ad justment of the mA and/or kV according to patient size, radiation dose was kept as low as reasonably achievable to obtain optimal diagnostic quality images. FINDINGS: There is mild right-sided hydronephrosis and dilatation of the right ureter to the level of the right ureterovesical junction. There is a faintly calcified presumed calculus at the right UVJ measuring a bout 3 mm in diameter. Probable small stones in the posterior bladder as well which is decompressed b y Jane. There is a nonobstructing approximately 10 mm x 8 mm calculus in the lower pole left kidney. Lung bases demonstrate some dependent atelectasis. Pacer leads present in the right atrium and right ventricle. No acute findings in the liver, spleen, adrenals or pancreas. No calcified gallstones or biliary duct al dilatation. No bowel obstruction. CONCLUSION: 1. Right-sided mild hydronephrosis and obstructive uropathy secondary to a presumed faintly calcified 3 mm calculus near the right UVJ with additional 3 mm calculus dependently within the bladder. Bladd er decompressed by Jane. 2. Nonobstructing calculus lower pole left kidney. Tigre Rios MD on December 28, 2016 at 1:53 Board Certified Radiologist. This report was verified electronically.
[2016-12-28] MEDS ORDERED: cefTRIAXone INJ 1,000 MG in SODIUM CHLORIDE 0.9% INJ 100 ML IV ONE (02:15)
[2016-12-28] MEDS ORDERED: SODIUM CHLORID 0.9% 500 ML INJ 500 ML IV ONE (02:15)
[2016-12-28] MEDS ORDERED: HYDR-3534 PO (02:22)
[2016-12-28] MEDS ORDERED: CEFT500T3 PO (02:22)
[2016-12-28] MEDS ORDERED: ZOFR4TAB3 SL (02:22)
[2016-12-28 03:30] VITALS: BP 128/67
== END 2016-12-28 03:45 | disposition home or self-care (01) ==
LOC: NEPE 23:24
DX: N13.2 Hydronephrosis with renal and ureteral calculous obstruction (principal); N39.0 Urinary tract infection, site not specified; B96.4 Proteus (mirabilis) (morganii) as the cause of diseases classified elsewhere; J45.909 Unspecified asthma, uncomplicated; I48.91 Unspecified atrial fibrillation; I10 Essential (primary) hypertension; E11.9 Type 2 diabetes mellitus without complications; E78.00 Pure hypercholesterolemia, unspecified; Z79.01 Long term (current) use of anticoagulants
CPT/HCPCS: 74176; 80048; 81001; 85025; 85610; 85730; 87077; 87086; 87186; 96361; 96374; 96375; 96376; 99284; J0696; J2270; J2405; J7030; J7040